=== PATIENT | male | born 1980 | race Hispanic/Latino ===

== ENCOUNTER 2016-07-31 07:55 | Day surgery (SDC) | payer OTHER ==
[2016-07-31 08:18] VITALS: TEMP 97.8
[2016-07-31 08:20] VITALS: BMI 27.6
[2016-07-31] MEDS ORDERED: Lactated Ringer's 500 ML IV ONE (12:23)
[2016-07-31] MEDS ORDERED: Lactated Ringer's 500 ML IV SCH (12:30)
[2016-07-31 13:59] VITALS: BP 134/80; PULSE 70; RESP 14; O2SAT 97
== END 2016-07-31 13:57 | disposition home or self-care (01) ==
LOC: C.ENDO 07:55
PROVIDERS: ATTEND Internal Medicine Gastroenterology
DX: K20.9 Esophagitis, unspecified (principal); K44.9 Diaphragmatic hernia without obstruction or gangrene; K25.7 Chronic gastric ulcer without hemorrhage or perforation
CPT/HCPCS: 43239; 88305; 88312; 88313; 88342; J7120